=== PATIENT | female | born 1945 | race Caucasian/White ===

== ENCOUNTER 2016-10-13 20:51 | Observation (INO) ==
--- NOTE | 2016-10-13 20:58 | Emergency Department Note ---
Disposition Clinical Impression: Acute exacerbation of chronic obstructive airways disease Disposition: Admitted As Inpatient Condition: Fair SOB HPI - General Chief Complaint: ED Shortness of Breath/Dyspnea Stated Complaint: D.I.B. Time Seen by Provider: 10/13/16 20:55 Source: patient, EMS Mode of arrival: EMS Limitations: no limitations Nursing Notes Reviewed: Yes Vital Signs Reviewed: Yes - History of Present Illness The patient relates that she is having shortness of breath today. She feels this is probably due to the change in the weather. She has had a cough is dry and wheezy. She has done her home aerosols without much relief because she states she was too short of breath inhale it well. She is having to use 4 L of oxygen to get to and from the bathroom. She states she usually has 2 L at home. She has not been having nausea, vomiting or diarrhea. She denies any ill exposures. She then she has had similar multiple times in the past with her COPD. She denies chest pain, palpitation, diaphoresis or dizziness. She denies headache, numbness, tingling or localizing weakness. She has received an aerosol in route and still feels somewhat dyspneic. Pt Subjective Complaint: shortness of breath Onset (ago): hour(s) Severity: moderate Consistency/Duration: gradually worsening Improves with: oxygen, bronchodilators Worsens with: exertion Known history of: COPD Associated symptoms: Reports: cough, wheezing. Denies: chest pain, pain with inspiration, fever, sputum production, orthopnea, lower extremity pain, polyuria , polydipsia, parasthesias, palpitations, hemoptysis, diaphoresis, nausea/ vomiting, syncope, abdominal pain, rash Treatment prior to arrival: oxygen, bronchodilator Cough present: Yes Cough Description: Voluntary, Non-Productive, Hacking Cough Frequency: Intermittent Sputum production: No - Related Data Home oxygen amount: 2 liters (Increased to 4 L today.) Home Medications Medication Instructions Recorded Confirmed Budesonide/Formoterol 160/4.5 1 puff IH DAILY 10/18/15 10/13/16 [Symbicort 160/4.5] Tiotropium [Spiriva] 18 mcg IH 0700 10/18/15 10/13/16 Albuterol Neb [AccuNeb] 1.25 mg IH TID PRN 05/01/16 10/13/16 Aspirin [Lo-Dose Aspirin EC] 81 mg PO DAILY 05/01/16 10/13/16 Azithromycin [Zithromax] 250 mg PO 3XW 05/01/16 10/13/16 Metoprolol [Lopressor] 50 mg PO 07/05/16 Cilostazol [Pletal] 10/13/16 Previous Rx's Medication Instructions Recorded PredniSONE 10 mg PO BIDWM #6 tablet 06/16/16 Allergies Allergy/AdvReac Type Severity Reaction Status Date / Time hydrocodone Allergy Cramping Verified 10/18/15 12:51 of the Muscles Sulfa (Sulfonamide Allergy Hives Verified 10/18/15 12:51 Antibiotics) antihistamines Allergy Palpitation Uncoded 10/18/15 12:51 s All systems ED: reviewed and negative except as stated. Past Medical History - Past Medical History Attestation: Yes The following information was validated with the patient. 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 history - Social History Smoking Status: Current every day smoker Smokeless Tobacco Status: No Alcohol use: Reports: none Drug use: Reports: none Physical Exam - General Limitations: no limitations General appearance: alert, in no apparent distress - Head Head exam: atraumatic, normocephalic, normal inspection - Eye Eye exam: Present: normal appearance, PERRL, EOMI - ENT ENT exam: normal exam, normal oropharynx, mucous membranes moist - Neck Neck exam: Present: normal inspection, full ROM, trachea midline - Chest Chest inspection: Present: normal inspection, symmetric chest wall rise - Respiratory Respiratory exam: Present: wheezes, prolonged expiratory phase. Absent: respiratory distress, accessory muscle use - Cardiovascular Cardiovascular exam: Present: regular rate, normal rhythm, normal heart sounds - Abdominal Exam Abdominal exam: Present: soft, Non-Tender, normal bowel sounds. Absent: tenderness, distention, guarding, rebound, rigidity - Extremities Exam Extremities exam: Present: normal inspection, full ROM, normal capillary refill. Absent: tenderness, pedal edema, calf tenderness - Expanded Lower Extremity Exam Neurovascular/Tendon exam: Present: normal capillary refill. Absent: motor deficit, sensory deficit, tendon deficit Gait: observed and normal - Back Exam Back exam: Present: normal inspection, full ROM. Absent: tenderness, CVA tenderness (R), CVA tenderness (L) - Neurological Exam Neurological exam: Present: alert, oriented X3 - Psychiatric Psychiatric exam: Present: normal affect, normal mood - Skin Skin exam: Present: warm, dry, intact, normal color. Absent: rash, diaphoresis , pallor Course Course Narrative: 2144: All lab, x-ray and EKG results are discussed with the patient and family. Patient still feels that she is weak and dyspneic and her family states that when she gets this way she usually needs to stay for tonight. I discussed this with Dr. Ribeiro who is agreeable to have her on COPD protocol and follow her clinically in the morning. Verbal orders are obtained for her observation and I have contacted to [facility] bed management for bed placement. Vital Signs Temperature 99.1 F 10/13/16 20:58 Pulse Rate 109 10/13/16 20:58 Respiratory Rate 22 10/13/16 20:58 Blood Pressure 128/52 10/13/16 20:58 O2 Sat by Pulse Oximetry 98 10/13/16 20:58 Temperature 99.1 F 10/13/16 21:01 Pulse Rate 92 10/13/16 21:50 Respiratory Rate 20 10/13/16 21:50 Blood Pressure 137/65 10/13/16 21:50 O2 Sat by Pulse Oximetry 93 L 10/13/16 21:50 Oxygen Delivery Oxygen Delivery Nasal Cannula Shortness of Breath/Dyspnea - Differential Diagnosis Likely: acute exacerbation of chronic obstructive airways disease, asthma with exacerbation - Medical Records Medical records reviewed: Yes I reviewed the patient's medical records. - Lab Data Lab results reviewed: Yes I reviewed the patient's lab results. Result diagrams: 10/13/16 21:11 10/13/16 21:11 Lab Results 10/13/16 10/13/16 10/13/16 Range/Units 21:11 21:11 21:11 WBC 7.6 (4.3-11.1) K/mcL RBC 4.18 (3.82-4.97) M/mcL Hgb 13.6 (11.5-15.4) g/dL Hct 40.0 (35.3-44.9) % MCV 95.7 (83.0-100.0) fL MCH 32.5 (28.0-33.3) pg MCHC 34.0 (31.6-35.5) g/dL RDW 12.1 (11.5-14.5) % Plt Count 285 (140-400) K/mcL MPV 8.7 L (9.4-12.4) fL Immature Gran % 0.3 (0-4) % Seg Neutrophils % 85.5 % Lymphocytes % 7.1 % Monocytes % 3.0 % Eosinophils % 3.7 % Basophils % 0.4 % Neutrophils # 6.5 (1.6-8.9) K/mcL Lymphocytes # 0.5 L (0.6-4.6) K/mcL Monocytes # 0.2 (0.0-1.3) K/mcL Eosinophils # 0.3 (0.0-0.6) K/mcL Basophils # 0.0 (0.0-0.2) K/mcL Sodium 137 (136-145) mEq/L Potassium 4.4 (3.5-4.5) mEq/L Chloride 102 (98-109) mEq/L Carbon Dioxide 25 (19-29) mEq/L BUN 13 (7-20) mg/dL Creatinine 0.73 (0.57-1.11) mg/dL Est GFR ( Amer) > 60 (> 60) Est GFR (Non-Af Amer) > 60 (> 60) BUN/Creatinine Ratio 18 (6-26) Glucose 137 H (70-99) mg/dL Calculated Osmolality 286 (280-300) Calcium 9.1 (8.6-10.8) mg/dL Troponin I 0.00 (0-0.03) ng/mL - Radiology Data Radiology results reviewed: Yes I reviewed the patient's radiology results. Single view chest x-ray is performed. This does not demonstrate evidence for infiltrate, effusion, pneumothorax, foreign body or heart failure. The cardiac silhouette is normal. The lungs are hyperexpanded consistent with COPD and emphysema. I do not see abnormality to the osseous structures of the chest. This is on my interpretation. Impressions Chest X-Ray 10/13/16 20:59 IMPRESSION: No acute cardiopulmonary abnormality. D/ / Neptali De La Paz MD / Neptali De La Paz MD Interpreting Provider: Neptali De La Paz MD - EKG Data EKG attestation: Yes I reviewed and interpreted this EKG. EKG shows normal: Reports: sinus rhythm, axis, intervals, QRS complexes, ST-T waves Rate: Reports: tachycardia (101) [place]/QRS: Reports: right axis deviation (Borderline) Interpretation: Reports: no acute changes, nonspecific ST-T wave changes
[2016-10-13 21:17] LABS: Basophils % 0.4 %; Eosinophils # 0.3 K/mcL (0.0-0.6); Eosinophils % 3.7 %; Hemoglobin 13.6 g/dL (11.5-15.4); Immature Granulocytes % 0.3 % (0-4); Lymphocytes # 0.5 K/mcL (0.6-4.6); Lymphocytes % 7.1 %; Mean Corpuscular Hemoglobin 32.5 pg (28.0-33.3); Mean Corpuscular Volume 95.7 fL (83.0-100.0); Mean Platelet Volume 8.7 fL (9.4-12.4); Monocytes # 0.2 K/mcL (0.0-1.3); Neutrophils # 6.5 K/mcL (1.6-8.9); Platelet Count 285 K/mcL (140-400); Red Blood Count 4.18 M/mcL (3.82-4.97); Red Cell Distribution Width 12.1 % (11.5-14.5); Segmented Neutrophils % 85.5 %
[2016-10-13 21:32] LABS: BUN/Creatinine Ratio 18 (6-26); Blood Urea Nitrogen 13 mg/dL (7-20); Calcium 9.1 mg/dL (8.6-10.8); Carbon Dioxide 25 mEq/L (19-29); Chloride 102 mEq/L (98-109); Glucose 137 mg/dL (70-99); Osmolality,Calculated 286 (280-300); Potassium 4.4 mEq/L (3.5-4.5); Sodium 137 mEq/L (136-145); eGFR For African Americans > 60 (> 60); eGFR For Non-African Americans > 60 (> 60)
[2016-10-13] MEDS ORDERED: Levofloxacin 500 MG/100 ML 500 MG/100 ML BAG IVPB SCH (21:44)
[2016-10-13] MEDS ORDERED: Ipratropium/Albuterol Neb 3 ML IH ONE (22:29)
[2016-10-13] MEDS ORDERED: Acetaminophen 325 MG TABLET PO PRN (23:50)
[2016-10-13] MEDS ORDERED: Naloxone 0.4 MG/ML INJ IVP PRN (23:50)
[2016-10-13] MEDS ORDERED: Ondansetron 4 MG/2 ML VIAL IVP PRN (23:50)
[2016-10-13] MEDS ORDERED: MOM Conc 10 ML UD.LIQ PO PRN (23:50)
[2016-10-14] MEDS: Ipratropium/Albuterol Neb 3 ML IH SCH ×5 (00:45→21:52)
[2016-10-14] MEDS: Albuterol 2.5 MG/3 ML NEBULIZER IH PRN ×2 (00:50→13:28)
[2016-10-14] MEDS: Levofloxacin 500 MG/100 ML 500 MG/100 ML BAG IVPB SCH (08:54)
[2016-10-14] MEDS: Aspirin Enteric Coated 81 MG Tablet PO SCH (08:54)
[2016-10-14] MEDS: PredniSONE 20 MG TABLET PO SCH ×2 (08:54→18:24)
--- NOTE | 2016-10-14 11:55 | Internal Med History&Physical ---
Date of Encounter: 10/14/16 Time of Encounter: 11:30 Assessment and Plan (1) Acute exacerbation of chronic obstructive airways disease Current visit: Yes Status: Acute She has been started on Levaquin and prednisone. Nebulizer treatments have been ordered. Further workup will be done as needed. Internal Medicine - H&P: HPI Chief complaint: Dyspnea Admitted From: Home Plans for Post Hospital Care: Home History of present illness: Ms. Patricia is a 71 year old female who came to emergency room stating she had increasing dyspnea onset earlier in the day. She denied chest pain. She had minimal productive cough present. She was evaluated in emergency room and felt to have exacerbation of COPD and was admitted to [facility] floor for ongoing care needs. Her respiratory history is significant for having smoked since age 9 up to one pack per day. She states she has smoked 2 cigarettes per week recently She had PFTs approximately April 2014 and was told she had COPD. She wears oxygen at home essentially 28/03. She has not been tested for NELSON. Past Med Surg Social Fam HX - Past Medical History Medical history: COPD, hyperlipidemia, SVT Psychiatric history: no psych history - Past Surgical History Surgical History: cholecystectomy, other - Social History Smoking Status: Current every day smoker Packs per day: <1 Smokeless Tobacco Status: No Alcohol use: none Drug use: none Internal Medicine - H&P: Meds Budesonide/Formoterol 160/4.5 [Symbicort 160/4.5] 1 puff IH DAILY 10/18/15 [ History] Tiotropium [Spiriva] 18 mcg IH 0700 10/18/15 [History] Albuterol Neb [AccuNeb] 1.25 mg IH TID PRN 05/01/16 [History] Aspirin [Lo-Dose Aspirin EC] 81 mg PO DAILY 05/01/16 [History] Azithromycin [Zithromax] 250 mg PO 3XW 05/01/16 [History] PredniSONE 10 mg PO BIDWM #6 tablet 06/16/16 [Rx] Metoprolol [Lopressor] 50 mg PO 07/05/16 [History] Cilostazol [Pletal] 10/13/16 [History] Allergies hydrocodone Allergy (Verified 10/18/15 12:51) Cramping of the Muscles Sulfa (Sulfonamide Antibiotics) Allergy (Verified 10/18/15 12:51) Hives antihistamines Allergy (Uncoded 10/18/15 12:51) Palpitations All Systems PM: A 10-system review of systems was performed and is negative for pertinent findings except as documented above in the HPI. Review of systems: Review of systems from the June 2016 history and physical were reviewed and revised as below. Gen.: Her weight has been stable at approximately 58 kg since the October 2015 hospitalization. Cardiovascular: She denies hypertension [place] heart failure DVT or pulmonary embolus. She had a stress test and heart catheter 2004 which were unremarkable. She had radioablation in 2011 for what sounds to be supraventricular arrhythmias. Respiratory: As per history of present illness GI: She has had cholecystectomy but denies disorders of her liver or exocrine pancreas : She denies hematuria dysuria or kidney stones Neurologic: She denies large distribution strokes or seizures. Endocrine: She had hyperlipidemia diagnosed in the past but does not take medication at this time. She has no known diabetes or thyroid disease Hematology/oncology: She denies blood disorders cancers or anemia Psychiatric: She denies anxiety depression or other mental health issues [place] skeletal: She has arthritis but denies gout or osteoporosis. - Constitutional Vitals: Temp Pulse Resp BP Pulse Ox 98.8 F 97 16 124/66 98 10/14/16 10:56 10/14/16 10:56 10/14/16 10:56 10/14/16 10:56 10/14/16 10:56 Exam: Gen.: She is a well-developed well-nourished female who appears in no severe distress at present time. HEENT: Head is atraumatic and normocephalic. Eyes: EOMI. There is no scleral icterus. Mouth: Mucosa is moist. Neck: Supple and nontender. There is no thyromegaly or adenopathy noted. Heart: Regular without murmurs gallops or ectopics. Lungs: No wheezes or crackles are heard. She has diminished breath sounds diffusely. Back: She has dorsal kyphosis. There is no flank tenderness. Abdomen: Soft and nontender. No masses or guarding are noted. Extremities: There is no cyanosis edema or clubbing noted. Dorsalis pedis and posterior tibial pulses are trace palpable bilaterally. Neurologic: Mental status: She is talkative and a good historian. Cranial nerves: Smile is symmetric. Forehead wrinkles bilaterally. Tongue protrudes midline. EOMI. Motor: There is no pronator drift. Cerebellar: Finger to nose is intact bilaterally. Skin: Warm and dry Internal Med - H&P Results - Labs CBC & Chem 7: 10/13/16 21:11 10/13/16 21:11 - VTE Documentation of Mechanical Device: Graduated compression elastic hosiery
--- NOTE | 2016-10-14 16:13 | Electrocardiograph Report ---
[address] [address] Test Date: 2016-10-13 Pat Name: Christelle Patricia Department: [id number] Room: [facility] Gender: F Global Marketing Intern: : 1945 Requested By: Carlos Darden Order Number: [id number] Reading MD: José Miguel Manzo Measurements Intervals [place] Rate: 101 P: 86 SC: 126 QRS: 92 QRSD: 84 T: 61 QT: 327 QTc: 385 Interpretive Statements SINUS TACHYCARDIA BORDERLINE RIGHT AXIS DEVIATION ABNORMAL RHYTHM ECG Electronically Signed On 10-14-2016 16:11:56 EST by José Miguel Manzo
[2016-10-15] MEDS: Ipratropium/Albuterol Neb 3 ML IH SCH ×4 (04:05→21:40)
[2016-10-15] MEDS: Aspirin Enteric Coated 81 MG Tablet PO SCH (08:16)
[2016-10-15] MEDS: PredniSONE 20 MG TABLET PO SCH (08:16)
[2016-10-15] MEDS: Levofloxacin 500 MG/100 ML 500 MG/100 ML BAG IVPB SCH (08:17)
--- NOTE | 2016-10-15 10:08 | Internal Med Progress Note ---
Date of Encounter: 10/15/16 Time of Encounter: 09:55 - Assessment and plan (1) Acute exacerbation of chronic obstructive airways disease Current Visit: Yes Status: Acute Assessment and plan: October 15. Continue Levaquin and prednisone with nebulizer treatments. - Subjective Interval history: October 15. She feels slightly improved but not back to her baseline. She is afraid she may decompensate since she is emotionally upset having rest learned her daughter is having emergency surgery today in [place]. - Constitutional Vitals: Temp Pulse Resp BP Pulse Ox 97.3 F L 92 18 122/69 98 10/15/16 07:38 10/15/16 07:38 10/15/16 07:38 10/15/16 07:38 10/15/16 07:38 Exam: Her lungs show diminished breath sounds diffusely but no wheezes or crackles are heard. Her affect is sad. I reviewed her medications and lab results. Internal Medicine: Result - Labs CBC & Chem 7: 10/13/16 21:11 10/13/16 21:11 - VTE Documentation of Mechanical Device: Graduated compression elastic hosiery Consult Discharge Plan - Plan Referrals: Janette Frausto [Other] - 1 week
[2016-10-15] MEDS: Budesonide/Formoterol 160/4.5 MDI IH SCH ×2 (12:25→21:40)
[2016-10-15] MEDS: PredniSONE 10 MG TABLET PO SCH (16:07)
[2016-10-16] MEDS: Ipratropium/Albuterol Neb 3 ML IH SCH (04:23)
[2016-10-16 06:31] VITALS: BP 108/58
--- NOTE | 2016-10-16 08:18 | Discharge Summary ---
Date of Encounter: 10/16/16 Time of Encounter: 08:10 - Discharge Diagnosis (1) Acute exacerbation of chronic obstructive airways disease Priority: Primary Status: Acute - Discharge Medications Prescriptions: Lactobacillus [Culturelle] 1 each PO BID #6 cap.sprink Levofloxacin [Levaquin] 500 mg PO DAILY #3 tablet Home Medications: Budesonide/Formoterol 160/4.5 [Symbicort 160/4.5] 1 puff IH DAILY 10/18/15 [ History] Tiotropium [Spiriva] 18 mcg IH 0700 10/18/15 [History] Albuterol Neb [AccuNeb] 1.25 mg IH TID PRN 05/01/16 [History] Aspirin [Lo-Dose Aspirin EC] 81 mg PO DAILY 05/01/16 [History] Azithromycin [Zithromax] 250 mg PO 3XW 05/01/16 [History] PredniSONE 10 mg PO BIDWM #6 tablet 06/16/16 [Rx] Metoprolol [Lopressor] 50 mg PO DAILY 07/05/16 [History] Cilostazol [Pletal] 100 mg PO BID 10/13/16 [History] Lactobacillus [Culturelle] 1 each PO BID #6 cap.sprink 10/16/16 [Rx] Levofloxacin [Levaquin] 500 mg PO DAILY #3 tablet 10/16/16 [Rx] Allergies/Adverse Reactions: Allergies hydrocodone Allergy (Verified 10/18/15 12:51) Cramping of the Muscles Sulfa (Sulfonamide Antibiotics) Allergy (Verified 10/18/15 12:51) Hives antihistamines Allergy (Uncoded 10/18/15 12:51) Palpitations Date of admission: 10/13/16 22:13 Primary care physician: Janette Frausto - Patient Status Disposition: Home, Self-Care Condition: Fair Overall status at discharge: patient is progressing back to baseline - Discharge Instructions Follow Up With: Janette Frausto [Other] - 1 week - Diet and Activity Activity: resume usual activities as tolerated Diet: advance to your usual diet Hospital course: Ms. Patricia is a 71 year old female who came to emergency room stating she had increasing dyspnea onset earlier in the day. She denied chest pain. She had minimal productive cough present. She was evaluated in emergency room and felt to have exacerbation of COPD and was admitted to MedSurg floor for ongoing care needs. Initial orders were written by the emergency room physician. I saw her on October 14 and performed the history and physical. She was started on Levaquin and prednisone. Nebulizer treatments were ordered. She had gradual improvement in her dyspnea. On October 16 she felt stable for discharge home which I felt was reasonable. She will follow with her primary care provider Dr. Janette Frausto within 1 week. I encouraged her to discontinue smoking. She will continue with Levaquin and Probiotica for 3 additional days after discharge. - Time Spent with Patient Total time spent providing and/or coordinating discharge services: - Constitutional Vitals: Temp Pulse Resp BP Pulse Ox 98.5 F 85 16 108/58 96 10/16/16 06:28 10/16/16 06:28 10/16/16 06:28 10/16/16 06:28 10/16/16 06:28 - VTE Documentation of Mechanical Device: Graduated compression elastic hosiery
[2016-10-16] MEDS: Aspirin Enteric Coated 81 MG Tablet PO SCH (08:43)
[2016-10-16] MEDS: PredniSONE 10 MG TABLET PO SCH (08:43)
[2016-10-16] MEDS: Levofloxacin 500 MG/100 ML 500 MG/100 ML BAG IVPB SCH (08:44)
== END 2016-10-16 10:45 | disposition home or self-care (01) ==
LOC: EMEROOPIK 20:51 → INPPIK 20:51
PROVIDERS: ADMIT Internal Medicine; ATTEND Internal Medicine